=== PATIENT | male | born 1970 | race Two or more races ===

== ENCOUNTER 2017-02-17 02:51 | Emergency (ER) | payer SELFPAY ==
[~2017-02-17] VITALS: Ht 175.3 cm; Wt 90.7 kg
[2017-02-17 03:00] VITALS: BP 185/118
== END 2017-02-17 04:32 | disposition left against medical advice (07) ==
LOC: ER 02:55
DX: M79.644 Pain in right finger(s) (principal); Y04.2XXA Assault by strike against or bumped into by another person, initial encounter; Y93.89 Activity, other specified; Y99.8 Other external cause status; Y92.89 Other specified places as the place of occurrence of the external cause; Z53.21 Procedure and treatment not carried out due to patient leaving prior to being seen by health care provider